=== PATIENT | female | born 1955 | race Caucasian/White ===

== ENCOUNTER → 2019-12-25 | Outpatient (CLI) | payer OTHER ==
--- NOTE | 2019-12-25 13:46 | KCIC ---
Bone mineral density exam History: Postmenopausal Comparison: None Findings: Bone mineral density examination utilizing DEXA was performed. Left hip bone mineral density of 0.863 g/cm2 corresponds with a T score -0.6, Z score 0.6. The bone mineral density of the lumbar spine was 1.118 g/cm2 which corresponds with a T-score of 0.6, Z score 2.4. By World [employer] on Osteoporosis criteria, a T score of 0 to-1 SD is considered to be within normal limits. A T score of -1 to -2.5 SD is considered osteopenia. A T score less than -2.5 SD is considered osteoporosis Impression: 1. There is normal bone density of the lumbar spine and the left hip. Electronically signed by: Nicko Carlson MD (12/25/2019 1:43 PM) [id number]
--- NOTE | 2019-12-27 09:55 | KCIC ---
Bilateral digital screening mammograms with 3-D tomosynthesis: Reason for examination: Routine screening. Comparison is made to previous study dated 12/31/2018. Bilateral mammograms in CC and oblique projections were obtained with 2-D imaging and 3-D tomosynthesis imaging on a Siemens Inspiration unit and reviewed on the workstation. Interpretation was made with the benefit of CAD. The skin and nipples show no abnormalities. No abnormal axillary lymph nodes are seen. The breast parenchyma shows scattered fatty and fibroglandular density. (Breast density: Category B.) There is a nodular density present anterior medially in the left breast at approximately the 9:00 position 4 cm from the nipple which measures approximately 1 cm in size. Further evaluation with ultrasound is recommended. There continues to be a small nodule posterior medially in the left breast seen best on CC view measuring 4.3 mm in size which is unchanged. There are no other dominant masses, suspicious calcifications or architectural distortion. Impression: 1 cm nodular density in the left breast at approximately the 9:00 position 4 cm from the nipple. Recommend further evaluation with ultrasound. BI-RADS Category 0: Incomplete. Needs additional imaging evaluation "Our facility is accredited by the [employer] Mammography [employer]." This patient's information has been entered into a reminder system for the patient to be notified with the results of her examination and a target date for the next mammogram. Electronically signed by: Mikki Berger MD (12/27/2019 9:53 AM) [id number]
== END | disposition home or self-care (01) ==
LOC: KCIC MAMMO 09:56
PROVIDERS: ATTEND Internal Medicine
DX: Z12.31 Encounter for screening mammogram for malignant neoplasm of breast (principal); Z78.0 Asymptomatic menopausal state; Z13.820 Encounter for screening for osteoporosis; N64.89 Other specified disorders of breast
CPT/HCPCS: 77063; 77067; 77080

== ENCOUNTER → 2019-12-25 | Outpatient (CLI) | payer OTHER ==
--- NOTE | 2019-12-25 14:24 | KCIC ---
EXAMINATION: SHOULDER 2+V RIGHT CLINICAL HISTORY: Reason: RECURRENT DISLOCATION OF RT SHOULDER, INJURY YRS AGO TECHNIQUE: SHOULDER 2+V RIGHT Number of Images/Views: 3 COMPARISON: None FINDINGS: Glenohumeral joint alignment maintained with small inferior marginal osteophytes. Mild acromioclavicular degenerative changes. No acute fracture. Acromiohumeral interval maintained. IMPRESSION: Mild glenohumeral and acromioclavicular degenerative changes. Electronically signed by: Jaxon Cr DO (12/25/2019 2:21 PM) [id number]
== END | disposition home or self-care (01) ==
LOC: KCIC 10:12
PROVIDERS: ATTEND Family Medicine
DX: M19.011 Primary osteoarthritis, right shoulder (principal); M24.411 Recurrent dislocation, right shoulder
CPT/HCPCS: 73030

== ENCOUNTER → 2020-01-09 | Outpatient (CLI) | payer OTHER ==
--- NOTE | 2020-01-09 16:05 | KCIC ---
Left breast ultrasound: Reason for examination: Nodular density on screening mammogram. Comparison is made to mammographic exam dated 12/31/2018. Ultrasound examination of the left breast was performed with attention to the area of mammographic concern and at the axilla. At the 9:30 position 4 cm from the nipple, there is a 1.2 cm hypoechoic circumscribed lesion in parallel orientation with no abnormal vascularity. The appearance is consistent with a fibroadenoma. No other cystic or solid nodules are seen. No abnormal appearing lymph nodes are seen in the left axilla. IMPRESSION: 1. 0.2 cm nodule consistent with fibroadenoma at the 9:30 position corresponds to the area of mammographic concern. Recommend 6 month follow-up with ultrasound. BI-RADS Category 3: Probably Benign. "Our facility is accredited by the [employer] Mammography [employer]." This patient's information has been entered into a reminder system for the patient to be notified with the results of her examination and a target date for the next mammogram. Electronically signed by: Mikki Berger MD (01/09/2020 4:02 PM) [email or web address]
== END ==
LOC: KCIC US 13:00
PROVIDERS: ATTEND Family Medicine
DX: R92.8 Other abnormal and inconclusive findings on diagnostic imaging of breast (principal); N63.22 Unspecified lump in the left breast, upper inner quadrant
CPT/HCPCS: 76641

== ENCOUNTER → 2021-03-01 | Outpatient (CLI) | payer BC ==
--- NOTE | 2021-03-01 17:08 | CARD ---
MR#: [id number] Date of Study: 03/01/2021 Ordering Physician: JAMES SALCEDO, Referring Physician: JAMES SALCEDO, Tech: Juana Zhou [facility] APPROVED REPORT EXAM: Two-dimensional and M-mode echocardiogram with Doppler and color Doppler. Other Information Quality : AverageHR: 57bpm INDICATION Chest Pain RISK FACTORS Hypertension Hyperlipidemia Diabetes 2D DIMENSIONS RVDd3.8 (2.9-3.5cm)Left Atrium(2D)3.6 (1.6-4.0cm) IVSd1.1 (0.7-1.1cm)Aortic Root(2D)3.1 (2.0-3.7cm) LVDd4.6 (3.9-5.9cm)LVOT Diameter2.0 (1.8-2.4cm) PWd0.9 (0.7-1.1cm)LVDs3.0 (2.5-4.0cm) FS (%) 34.5 %SV61.6 ml Aortic Valve AoV Peak Juan J.145.1cm/sAoV VTI34.1cm AO Peak GR.8.4mmHgLVOT Peak Juan J.91.7cm/s LVOT VTI 21.76cmAO Mean GR.5mmHg JULIA (VMAX)1.69fv8SIP (VTI)2.05cm2 Mitral Valve MV E Fokxntpy44.9cm/sMV DECEL [id number] MV A Lstfbflk73.9cm/sMV E Mean Gr.1mmHg MV UTQ94csA/A Ratio1.0 MVA (PHT)3.30cm2 TDI E/Lateral E'9.2E/Medial E'7.8 Pulmonary Valve PV Peak Zhwjwqmn85.8cm/sPV Peak Grad.3mmHg Tricuspid Valve TR P. Ejfucdpm096jd/sRAP [id number] TR Peak Gr.33ncKlIAZX50siHo Pulmonary Vein S1 Fexaugqu67.2cm/sD2 Xchcusxq18.2cm/s PVa [id number] LEFT VENTRICLE The left ventricle is normal size. There is borderline concentric left ventricular hypertrophy. The l eft ventricular systolic function is normal and the ejection fraction is within normal range. The Eje ction Fraction is 50-55%. There is normal LV segmental wall motion. Transmitral Doppler flow pattern is Grade II-pseudonormal filling dynamics. RIGHT VENTRICLE The right ventricle is normal size. There is normal right ventricular wall thickness. The right ventr icular systolic function is normal. ATRIA The left atrium size is normal. The right atrium size is normal. The interatrial septum is intact wit h no evidence for an atrial septal defect or patent foramen ovale as noted on 2-D or Doppler imaging. AORTIC VALVE The aortic valve is normal in structure and function. Doppler and Color Flow revealed trace aortic re gurgitation. There is no significant aortic valvular stenosis. Calculated aortic valve area is 2.37 c m2 with maximum pressure gradient of 11 mmHg and mean pressure gradient of 6 mmHg. MITRAL VALVE The mitral valve is normal in structure and function. There is no evidence of mitral valve prolapse. There is no mitral valve stenosis. Doppler and Color-flow revealed trace mitral regurgitation. TRICUSPID VALVE The tricuspid valve is normal in structure and function. Doppler and Color Flow revealed trace to mil d tricuspid regurgitation with an estimated PAP of 32 mmHg. There is no tricuspid valve stenosis. PULMONIC VALVE The pulmonic valve is not well visualized. Doppler and Color Flow revealed trace pulmonic valvular re gurgitation. GREAT VESSELS The aortic root is normal in size. The ascending aorta is mildly dilated measuring 3.5 cm. The IVC is normal in size and collapses >50% with inspiration. PERICARDIAL EFFUSION There is no evidence of significant pericardial effusion. Critical Notification Critical Value: No <Conclusion> The left ventricle is normal size. The left ventricular systolic function is normal and the ejection fraction is within normal range. The Ejection Fraction is 50-55%. There is borderline concentric left ventricular hypertrophy. Doppler and Color Flow revealed trace aortic regurgitation. There is no significant aortic valvular stenosis. Doppler and Color-flow revealed trace mitral regurgitation. Doppler and Color Flow revealed trace to mild tricuspid regurgitation with an estimated PAP of 32 mmH g. The ascending aorta is mildly dilated measuring 3.5 cm. Signed by : Lexa Ulrich MD Electronically Approved : 03/01/2021 17:07:39
== END ==
LOC: ECHO 13:06
PROVIDERS: ATTEND Internal Medicine Cardiovascular Disease
DX: I07.1 Rheumatic tricuspid insufficiency (principal); I77.819 Aortic ectasia, unspecified site; R07.9 Chest pain, unspecified
CPT/HCPCS: 93306